=== PATIENT | male | born 1965 | race Caucasian/White ===

== ENCOUNTER 2019-09-11 16:34 | Emergency (ER) | payer OTHER ==
[~2019-09-11] VITALS: Ht 172.7 cm; Wt 70.3 kg
--- NOTE | ~2019-09-11 | EKG ---
[place], [place] ELECTROCARDIOGRAM REPORT NAME: MATT PATEL UNIT #: [id number] ROOM: DOCTOR: EPIPHANY DRAFT REPORT BIRTHDATE: [birth year] [facility] Test Date: 2019-09-11 Test Time: 17:24:51 Pat Name: MATT PATEL Department: ER Room: 18 Gender: M [employer]: : [id number] Requested By: ARLENE HOWELL Order Number: [id number] Reading MD: French Renteria Measurements Intervals [place] Rate: 80 P: 73 [place]: 167 QRS: 63 QRSD: 97 T: 49 QT: 442 QTc: 510 Interpretive Statements Sinus rhythm Prolonged QT interval Baseline wander in lead(s) I,III,aVR,aVL,aVF,V1,V4,V5,V6 Electronically Signed On 09-12-2019 11:20:01 PST by French Renteria CM:EKGRPT:ELECTROCARDIOGRAM REPORT [id number] ARLENE LANGLEY DRAFT REPORT ARLENE HOWELL MD
[2019-09-11 17:03] LABS: HEMATOCRIT 29.2 % (42.0-52.0); HEMOGLOBIN 9.3 g/dl (14.0-18.0); MEAN CORPUSCULAR HGB 33.5 pg (27.0-31.0); MEAN CORPUSCULAR HGB CONC 31.8 g/dl (33.0-37.0); MEAN PLATELET VOLUME 12.4 fl (9.6-12.3); PLATELET COUNT AUTOMATED 143 10*3/uL (130-400); RED BLOOD COUNT 2.78 10*6/uL (4.50-5.90); RED CELL DISTRI WIDTH 19.3 % (0-14.5); WHITE BLOOD COUNT 14.3 10*3/uL (4.8-10.8)
[2019-09-11 17:13] LABS: ACT PARTIAL THROMBO TIME 31.9 SECONDS (20.0-32.1); INTERNATIONAL NORM RATIO 1.5 (2.0-3.5)
[2019-09-11 17:22] LABS: ALBUMIN 1.8 gm/dl (3.1-4.5); ALKALINE PHOSPHATASE 147 U/L (45-117); BUN 8 mg/dl (7-24); CHLORIDE 96 mmol/L (98-107); LIPASE 263 U/L (73-393); POTASSIUM 3.5 mmol/L (3.5-5.1); SGOT/AST 211 IU/L (3-35); SGPT/ALT 102 U/L (12-78); SODIUM 127 mmol/L (136-145); TOTAL PROTEIN 6.2 gm/dL (6.4-8.2)
[2019-09-11 17:31] LABS: TROPONIN I < 0.015 ng/ml (<0.045)
[2019-09-11 17:39] LABS: BASOPHILS 3 % (0-1); PLATELET SUFFICIENCY LOW (NORMAL); TOTAL CELLS COUNTED 100 #CELLS
[2019-09-11 17:40] LABS: BURR CELLS FEW; POLYCHROMASIA SLIGHT
[2019-09-11 18:01] LABS: BILIRUBIN 3+ (NEGATIVE); BLOOD NEGATIVE (NEGATIVE); CLARITY CLEAR (CLEAR); COLOR ORANGE (YELLOW); GLUCOSE NEGATIVE (NEGATIVE); KETONE TRACE (NEGATIVE); LEUKO ESTERASE NEGATIVE (NEGATIVE); NITRITE NEGATIVE (NEGATIVE)
[2019-09-11 18:19] LABS: URINE AMPHETAMINES < 1000 (1000ng/ml); URINE BARBITURATES < 200 (200ng/ml); URINE BENZODIAZEPINES < 200 (200ng/ml); URINE CANNABINOIDS (THC) > 50 (50ng/ml); URINE COCAINE > 300 (300ng/ml); URINE METHADONE < 300 (300ng/ml); URINE OPIATES > 300 (300ng/ml)
[2019-09-11 18:26] LABS: URINE PHENCYCLIDINE < 25 (25ng/ml)
[2019-09-11 18:39] LABS: BODY FLUID WBC 149 /uL
[2019-09-11 19:19] LABS: BF LYMPHOCYTES 3 %; BF MACROPHAGES 28 %; BF MONOCYTES 4 %; BF NEUTROPHILS 35 %
[2019-09-11 19:20] LABS: BF MESOTHELIALS 30 %
== END 2019-09-11 23:55 | disposition short-term general hospital (02) ==
LOC: ED 16:34
PROVIDERS: Emergency Medicine
DX: K70.31 Alcoholic cirrhosis of liver with ascites (principal); K65.2 Spontaneous bacterial peritonitis; B96.89 Other specified bacterial agents as the cause of diseases classified elsewhere; F19.10 Other psychoactive substance abuse, uncomplicated; F10.129 Alcohol abuse with intoxication, unspecified; F17.200 Nicotine dependence, unspecified, uncomplicated; Y90.5 Blood alcohol level of 100-119 mg/100 ml